=== PATIENT | male | born 1995 | race Two or more races ===

== ENCOUNTER 2019-08-14 19:30 | Emergency (ER) | payer MEDICAID, OTHER ==
[~2019-08-14] VITALS: Ht 167.6 cm; Wt 3.6 kg
[2019-08-14 21:19] VITALS: BP 145/46
[2019-08-14] MEDS ORDERED: ACETAMINOPHEN 325 MG TAB PO ONE (22:00)
== END 2019-08-15 00:08 | disposition home or self-care (01) ==
LOC: ER 19:31
DX: M54.5 Low back pain (principal); V49.9XXA Car occupant (driver) (passenger) injured in unspecified traffic accident, initial encounter; Y93.89 Activity, other specified; Y92.89 Other specified places as the place of occurrence of the external cause; Y99.8 Other external cause status
CPT/HCPCS: 71045; 72040; 72070; 72100